=== PATIENT | female | born 1980 | race Caucasian/White ===

== ENCOUNTER 2016-10-14 09:23 | Emergency (ER) | payer BC ==
[2016-10-14 09:55] VITALS: PULSE 107
--- NOTE | 2016-10-14 10:42 | PD ---
HPI Chief Complaint contractions? Date Seen: Oct 14, 2016 Time Seen: 10:20 Travel History International Travel<30 Days: No Contact w/Intl Traveler<30Days: No Known Affected Area: No History of Present Illness HPI Pt is a 36 y/o G1 with IUP at 40.2 wks who presents for labor check. Pt states she thinks she may be feeling contractions. Unable to assess pattern. denies vag bleeding, lof. decreased FM today, but has felt movement since arrival. Para: 0 : 1 History Past Medical History Narrative Medical Rh neg, anemia, GERD Past Surgical History Narrative Surgical tonsillectomy Family History Family History: Negative Social History Alcohol Use: No Tobacco Use: No Substance Abuse: No Allergies-Medications (Allergen,Severity, Reaction): Coded Allergies: Doxycycline (Verified Allergy, Unknown, 10/14/16) Narrative Medication zantac, PNV Review of Systems General / Constitutional: Weight Gain Eyes: No: Diploplia, Blurred Vision, Visual changes, Pain, Photophobia, Other HENT: No: Headaches, Vertigo, Dental Difficulties, Lightheadedness, Other Cardiovascular: Tachycardia Respiratory: Short of Breath Gastrointestinal: Abdominal Pain Genitourinary: No: Urgency, Frequency, Dysuria, Nocturia, Hematuria, Decreased Urinary Output, Oliguria, Hesitancy, Dribbling, Incontinence, Pelvic Pain, Dyspareunia, Discharge, Menorrhagia, Vaginal Bleeding, Other Musculoskeletal: Pain Skin: No Rash, No Itching, No Dryness, No Lumps, No Change in Pigmentation, No Change in Nails, No Alopecia, No Lesions, No Breast Lumps, No Breast Tenderness , No Breast Swelling, No Other Neurologic: No: Weakness, Dizziness, Syncope, Focal Abnormalities, Coordination Problem, Headache, Slurred Speech, Seizures, Other Psychiatric: No: Anxiety, Depression, Suicidal Ideations, Disorder of Thought, Mood Disorder, Substance Abuse, Homicidal Ideation, Other Endocrine: No: Heat Intolerance, Cold Intolerance, Polydipsia, Polyuria, Other Hematologic/Lymphatic: No Easy Bruising, No Lymph Node Enlargement, No Other Physical Exam 113/71, 107, 20, 98.8 Narrative GENERAL: Well-nourished, well-developed patient. SKIN: Warm and dry. HEAD: Normocephalic and atraumatic. EYES: No scleral icterus. No injection or drainage. ENT: No nasal drainage noted. Mucous membranes pink. Airway patent. NECK: Supple, trachea midline. No JVD. CARDIOVASCULAR: Regular rate and rhythm without murmurs, gallops, or rubs. RESPIRATORY: Breath sounds equal bilaterally. No accessory muscle use. ABDOMEN/GI: Abdomen soft, non-tender, bowel sounds present, no rebound, no guarding Gravid GENITOURINARY: External Genitalia: intact and normal in appearance BUS glands: wnl Cervix: mid-position, soft Dilatation: 2 Effacement: 90 Station: -2 Presentation: ceph Membranes: intact Uterine Contractions: irritability FHT's: Category: 1 Baseline: 130s Reactive: yes Variability: mod Decels: none EXTREMITIES: No cyanosis. trace pedal edema BACK: Nontender without obvious deformity. No CVA tenderness. NEUROLOGICAL: Awake and alert. Motor and sensory grossly within normal limits. Five out of 5 muscle strength in all muscle groups. Normal speech. Data Data Vital Signs Reviewed: Yes MDM Medical Record Reviewed: Yes ( records reviewed: Rh neg) Narrative Course / MDM 36 y/o G1 with IUP at 40.2 with false labor (versus early latent labor) pt desires natural delivery and desires to go home if not in active labor s/sx of active labor reviewed. [facility] Diagnosis Diagnosis: Primary Impression: 40 weeks gestation of Additional Impression: False labor after 37 completed weeks of gestation Disposition: 01 DISCHARGE HOME Condition: Stable Patient Instructions: General Instructions, Early Labor Signs (ED), Nausea and Vomiting in (ED), Having Your Baby: The Labor Process (GEN), Movement (ED) Departure Forms: Tests/Procedures Chester Gates MD Oct 14, 2016 10:42
== END 2016-10-14 12:44 | disposition home or self-care (01) ==
LOC: HOBED 09:23
DX: O47.1 False labor at or after 37 completed weeks of gestation (principal); Z3A.40 40 weeks gestation of pregnancy
CPT/HCPCS: 59025

== ENCOUNTER 2016-10-15 00:31 | Inpatient (IN) | payer BC ==
[2016-10-15] VITALS (72 sets, daily range): BP systolic 97–173; BP diastolic 62–92; PULSE 59–113; RESP 18–20; TEMP 97.8–98.1
[~2016-10-15] VITALS: Ht 162.6 cm; Wt 98.0 kg
[2016-10-15] MEDS ORDERED: LACTATED RINGER'S 1000 ML INJ 1,000 ML IV PRN (01:31)
[2016-10-15] MEDS ORDERED: SODIUM CHLORID 0.9% 500 ML INJ 500 ML IV PRN (01:45)
[2016-10-15] MEDS ORDERED: CITRIC ACID-SODIUM CITRATE LIQ 30 ML UDC PO SCH (01:45)
[2016-10-15] MEDS ORDERED: OXYTOCIN 30 UNITS-500ML PREMIX 500 ML IV ONE (01:45)
[2016-10-15] MEDS ORDERED: MINERAL OIL 10 ML VIAL TOPICAL PRN (01:45)
[2016-10-15] MEDS ORDERED: LIDOCAINE HCL 1% 50 ML VIAL I-DERMAL PRN (01:45)
[2016-10-15] MEDS ORDERED: ONDANSETRON HCL 4 MG/2 ML VIAL IV PRN (01:45)
[2016-10-15] MEDS ORDERED: LIDOCAINE HCL 1% 50 ML VIAL INFIL PRN (01:45)
[2016-10-15] MEDS ORDERED: SODIUM CHLOR 0.9% 1000 ML INJ 1,000 ML IV PRN (01:51)
[2016-10-15] MEDS: LACTATED RINGER'S 1000 ML INJ 1,000 ML IV SCH ×2 (02:03→03:11)
--- NOTE | 2016-10-15 02:04 | PD ---
HPI Chief Complaint contractions Date Seen: Oct 15, 2016 Time Seen: 01:30 Travel History International Travel<30 Days: No Contact w/Intl Traveler<30Days: No Known Affected Area: No History of Present Illness HPI 36 y/o G1 with IUP at 40.3 wks presents for labor check. pt reports + contractions every 5 minutes, + pelvic pressure, + bloody show. +FM Para: 0 : 1 History Past Medical History Narrative Medical Rh neg, GERd, anemia Past Surgical History Narrative Surgical tonsillectomy Family History Family History: Negative Social History Alcohol Use: No Tobacco Use: No Substance Abuse: No Allergies-Medications (Allergen,Severity, Reaction): Coded Allergies: Doxycycline (Verified Allergy, Unknown, 10/14/16) Narrative Medication PNV Review of Systems General / Constitutional: Weight Gain Eyes: No: Diploplia, Blurred Vision, Visual changes, Pain, Photophobia, Other HENT: No: Headaches, Vertigo, Dental Difficulties, Lightheadedness, Other Cardiovascular: No: Irregular Rhythm, Chest Pain or Discomfort, Palpitations, Tachycardia, Syncope, Varicosities, Edema, Cyanosis, Other Respiratory: No: Cough, Short of Breath, Wheezing, Other Gastrointestinal: Abdominal Pain Genitourinary: Pelvic Pain, Vaginal Bleeding Musculoskeletal: No: Limited ROM, Weakness, Cramping, Edema, Pain, Other Skin: No Rash, No Itching, No Dryness, No Lumps, No Change in Pigmentation, No Change in Nails, No Alopecia, No Lesions, No Breast Lumps, No Breast Tenderness , No Breast Swelling, No Other Neurologic: No: Weakness, Dizziness, Syncope, Focal Abnormalities, Coordination Problem, Headache, Slurred Speech, Seizures, Other Psychiatric: No: Anxiety, Depression, Suicidal Ideations, Disorder of Thought, Mood Disorder, Substance Abuse, Homicidal Ideation, Other Endocrine: No: Heat Intolerance, Cold Intolerance, Polydipsia, Polyuria, Other Hematologic/Lymphatic: No Easy Bruising, No Lymph Node Enlargement, No Other Physical Exam 135/84, 76, 18, 98.2 Narrative GENERAL: Well-nourished, well-developed patient. SKIN: Warm and dry. HEAD: Normocephalic and atraumatic. EYES: No scleral icterus. No injection or drainage. ENT: No nasal drainage noted. Mucous membranes pink. Airway patent. NECK: Supple, trachea midline. No JVD. CARDIOVASCULAR: Regular rate and rhythm without murmurs, gallops, or rubs. RESPIRATORY: Breath sounds equal bilaterally. No accessory muscle use. ABDOMEN/GI: Abdomen soft, non-tender, bowel sounds present, no rebound, no guarding Gravid GENITOURINARY: External Genitalia: intact and normal in appearance BUS glands: [wnl] Cervix: anterior, soft Dilatation: 5-6 Effacement: 90 Station: -1 Presentation: ceph Membranes: bulging bag palpated Uterine Contractions: not tracing well with patient on side, pt reports q 5 min FHT's: Category: 1 Baseline: 130s Reactive: yes Variability: mod Decels: no EXTREMITIES: No cyanosis or edema. BACK: Nontender without obvious deformity. No CVA tenderness. NEUROLOGICAL: Awake and alert. Motor and sensory grossly within normal limits. Five out of 5 muscle strength in all muscle groups. Normal speech. Data Data Vital Signs Reviewed: Yes Orders Admit To Inpatient (10/15/16 ) Code Status (10/15/16 01:31) Vital Signs (Adult) .Per protocol (10/15/16 01:31) Heart (10/15/16 01:31) Amnioinfusion (10/15/16 01:31) Urinary Catheter Management .ONCE (10/15/16 01:31) Lactated Ringer's 1000 Ml Inj (Lr 1000 M (10/15/16 01:31) Lactated Ringer's 1000 Ml Inj (Lr 1000 M (10/15/16 01:31) Sodium Chlorid 0.9% 500 Ml Inj (Ns 500 M (10/15/16 01:45) Sodium Chlor 0.9% 1000 Ml Inj (Ns 1000 M (10/15/16 01:51) Lidocaine 1% Inj (50 Ml) (Xylocaine 1% I (10/15/16 01:45) Citric Acid-Sodium Citrate Liq (Bicitra (10/15/16 01:45) Ondansetron Inj (Zofran Inj) (10/15/16 01:45) Fentanyl Inj (Fentanyl Inj) (10/15/16 01:45) Fentanyl Inj (Fentanyl Inj) (10/15/16 01:45) Complete Blood Count With Diff (10/15/16 01:31) Hold Clot (10/15/16 01:31) Abo/Rh Blood Type (10/15/16 01:31) Resp Oxygen Non Rebreathe Mask (10/15/16 ) ^ Epidural / Intrathecal Infus (10/15/16 01:31) Oxytocin 30 Units-500ml Premix (Pitocin (10/15/16 01:45) Lidocaine 1% Inj (50 Ml) (Xylocaine 1% I (10/15/16 01:45) Light Mineral Oil (Muri-Lube Oil) (10/15/16 01:45) Inpatient Certification (10/15/16 ) Ob (2e) Additional Admit Info (10/15/16 01:41) MDM Medical Record Reviewed: Yes (Rh neg, GBS neg) Narrative Course / MDM 36 y/o G1 with IUP at 40.3 wks, active labor admit for delivery GBS neg Dr. Sawyer notified of pt admission/status. Chester Gates MD Oct 15, 2016 02:04
[2016-10-15] MEDS ORDERED: ePHEDrine/NS 25 MG/5 ML SYR ONE (02:19)
[2016-10-15] MEDS ORDERED: fentaNYL 2MCG-BUPIV 0.125% INJ 100 ML ONE (02:19)
[2016-10-15 02:40] LABS: BASOPHIL # 0.1 TH/MM3 (0-0.2); BASOPHIL % 0.4 % (0.0-2.0); EOSINOPHIL % 0.1 % (0.0-4.0); HEMATOCRIT 38.6 % (35.0-46.0); HEMO FLAGS DIFF FINAL; LYMPH % 6.2 % (9.0-44.0); LYMPHOCYTE # 1.1 TH/MM3 (1.0-4.8); MEAN CELL VOLUME 92.6 FL (80.0-100.0); MEAN CORPUSCULAR HEMOGLOBIN 31.9 PG (27.0-34.0); MEAN CORPUSCULAR HGB CONC 34.5 % (32.0-36.0); NEUT % 87.3 % (16.0-70.0); PLATELET COUNT 138 TH/MM3 (150-450); RED BLOOD COUNT 4.17 MIL/MM3 (4.00-5.30); RED CELL DISTRIBUTION WIDTH 12.9 % (11.6-17.2); WHITE BLOOD COUNT 17.2 TH/MM3 (4.0-11.0)
[2016-10-15] MEDS ORDERED: NO SYSTEM NARCOTICS PRN (03:45)
[2016-10-15] MEDS ORDERED: ePHEDrine/NS 25 MG/5 ML SYR IV PRN (03:45)
[2016-10-15] MEDS ORDERED: DO NOT ADMINISTER ANTICOAGULANTS PRN (03:45)
[2016-10-15] MEDS ORDERED: fentaNYL 2MCG-BUPIV 0.125% 100 ML EPIDURAL SCH (03:45)
[2016-10-15] MEDS ORDERED: LIDOCAINE HCL 1.5% PF SOLN 20 ML AMP ONE (05:55)
[2016-10-15] MEDS ORDERED: BUPIVACAINE HCL PF 0.25% 10 ML VIAL ONE (05:56)
[2016-10-15] MEDS ORDERED: LIDOCAINE HCL 1% PF 30 ML VIAL ONE ×2 (06:41→07:13)
--- NOTE | 2016-10-15 07:42 | PD.OB.DELI ---
Anesthesia: Epidural Episiotomy: Midline Vaginal Delivery: Normal Presentation: Occiput anterior Nuchal Cord: None Delayed cord clamping (45 sec): Yes Infant: Male One Minute : 10 Weight: 8 Placenta: Spontaneous delivery Laceration: 2 deg Repair: Chromic interrupted (meconium not below cords) Dana Sawyer MD Oct 15, 2016 07:42
[2016-10-15] MEDS ORDERED: BENZOCAINE 20% TOPICAL SPRAY 60 ML CAN TOPICAL PRN (07:45)
[2016-10-15] MEDS ORDERED: WITCH HAZEL 50%/GLYCERIN 12.5% 40 PAD JAR TOPICAL PRN (07:45)
[2016-10-15] MEDS ORDERED: ALUMINUM/MAGNESIUM/SIMETH 30 ML CUP PO PRN (07:45)
[2016-10-15] MEDS ORDERED: ZOLPIDEM TARTRATE 5 MG TAB PO PRN (07:45)
[2016-10-15] MEDS ORDERED: SODIUM CHLORIDE 0.9% FLUSH 10 ML FLUSH IV FLUSH PRN (07:45)
[2016-10-15] MEDS ORDERED: ONDANSETRON ODT 4 MG TAB PO PRN (07:45)
[2016-10-15] MEDS ORDERED: SODIUM CHLORIDE 0.9% FLUSH 10 ML FLUSH IV FLUSH SCH (09:00)
[2016-10-15] MEDS: DOCUSATE SODIUM 50 MG/SENNA 8.6 MG TAB PO PRN (11:16)
[2016-10-15] MEDS: IBUPROFEN 600 MG TAB PO PRN ×2 (15:14→22:11)
[2016-10-15] MEDS: ACETAMINOPHEN 325 MG TAB PO PRN ×2 (15:14→22:11)
[2016-10-15] MEDS ORDERED: DIPHTH/TETANUS/ACEL PERTUSSIS (BOOSTER) 0.5 ML VIAL/PFS IM ONE (16:00)
[2016-10-15] MEDS ORDERED: MEASLES, MUMPS, RUBELLA VACCINE 0.5 ML VIAL SQ ONE (16:00)
--- NOTE | 2016-10-16 02:26 | HHI.DCPOC ---
Discharge Care Plan Diagnosis: (1) (spontaneous vaginal delivery) Your Health Problems Are: Vaginal delivery Report Symptoms to Your Doctor -Temperature above 100.5 degrees -Redness, of incision or excessive or foul smelling drainage -Unusual pain or calf pain -Increased vaginal bleeding -Painful or difficulty urinating -Feelings of extreme sadness or anxiety after 2 weeks Goals to Promote Your Health * To prevent worsening of your condition and complications * To maintain your health at the optimal level Directions to Meet Your Goals Take your medications as prescribed Follow your dietary instruction Follow activity as directed Ensure plenty of rest for recovery Drink fluids for hydration Keep your appointments as scheduled Take your immunizations and boosters as scheduled If your symptoms worsen call your PCP, if no PCP go to Urgent Care Center or Emergency Room Smoking is Dangerous to Your Health. Avoid second hand smoke Call the 24-hour crisis hotline for domestic abuse at Lali Hargrove MD Oct 16, 2016 02:26
--- NOTE | 2016-10-16 02:28 | HHI.OB ---
Subjective Post Day: 1 Remarks doing well except for a cough that has been going on for over a week, feels getting worse and has sinus pressure Objective Vitals/I&O Vital Signs Date Time Temp Pulse Resp B/P Pulse Ox O2 Delivery O2 Flow Rate FiO2 10/15/16 20:00 97.8 89 20 98/64 10/15/16 09:30 98.0 10/15/16 09:30 70 18 103/62 10/15/16 07:31 81 137/81 10/15/16 06:45 89 10/15/16 06:40 86 10/15/16 06:35 93 10/15/16 06:30 104 10/15/16 06:25 100 10/15/16 06:20 86 10/15/16 06:15 101 10/15/16 06:10 107 10/15/16 06:05 82 10/15/16 06:00 102 10/15/16 06:00 101 130/73 10/15/16 05:55 85 10/15/16 05:50 91 10/15/16 05:45 95 10/15/16 05:40 113 10/15/16 05:35 99 10/15/16 05:30 83 10/15/16 05:30 95 125/80 10/15/16 05:25 109 10/15/16 05:23 98.1 18 10/15/16 05:20 93 10/15/16 05:15 87 10/15/16 05:10 85 10/15/16 05:05 95 10/15/16 05:01 119/67 10/15/16 05:01 90 10/15/16 05:00 90 10/15/16 04:55 84 10/15/16 04:50 83 10/15/16 04:45 84 10/15/16 04:40 94 10/15/16 04:35 101 10/15/16 04:30 95 126/92 10/15/16 04:25 81 10/15/16 04:20 89 10/15/16 04:15 100 10/15/16 04:10 88 10/15/16 04:05 84 10/15/16 04:00 18 10/15/16 04:00 90 119/73 10/15/16 04:00 91 10/15/16 03:55 89 111/80 7/21/17 03:55 108 10/15/16 03:51 98 131/81 10/15/16 03:50 93 10/15/16 03:45 71 10/15/16 03:40 66 10/15/16 03:35 105 10/15/16 03:30 95 10/15/16 03:30 86 125/76 10/15/16 03:25 97 10/15/16 03:25 101 97/76 10/15/16 03:20 79 10/15/16 03:20 77 120/69 10/15/16 03:15 84 115/79 10/15/16 03:15 87 10/15/16 03:11 70 134/67 10/15/16 03:10 76 10/15/16 03:09 89 173/68 10/15/16 03:05 67 10/15/16 03:00 69 10/15/16 02:55 73 10/15/16 02:50 69 10/15/16 02:45 83 10/15/16 02:35 101 10/15/16 02:30 76 Objective Remarks GENERAL: Well-nourished, well-developed patient. CARDIOVASCULAR: Regular rate and rhythm without murmurs, gallops, or rubs. RESPIRATORY: Breath sounds equal bilaterally. No accessory muscle use. lugs ctab ABDOMEN/GI: Abdomen soft, non-tender. Fundus: Firm, non-tender at umbilicus. GENITOURINARY: Light to moderate bleeding. EXTREMITIES: No cyanosis or edema, non-tender, without signs of DVT. Medications and IVs Current Medications Medications (Trade) Dose Ordered Sig/Mich Route Start Time Stop Time Status Last Admin Lactated Ringer's 1,000 ml @ 125 mls/hr Q8H IV 10/15/16 01:31 10/15/16 03:11 Lactated Ringer's 1,000 ml @ 3,000 mls/hr Q20M PRN IV 10/15/16 01:31 Sodium Chloride 500 ml @ 1,000 mls/hr ONCE PRN IV 10/15/16 01:45 (NS 1000 ml Inj) 1,000 ml @ 100 mls/hr Q10H PRN IV 10/15/16 01:51 (Zofran Inj) 4 mg Q6H PRN IV 10/15/16 01:45 10/15/16 02:34 (fentaNYL INJ) 50 mcg Q1H PRN IV PUSH 10/15/16 01:45 (fentaNYL INJ) 100 mcg Q1H PRN IV PUSH 10/15/16 01:45 (Muri-Lube Oil) 10 ml UNSCH PRN TOPICAL 10/15/16 01:45 Miscellaneous Information No systemic narcotics to be given except... UNSCH PRN .XX 10/15/16 03:45 10/16/16 03:44 Miscellaneous Information DO NOT ADMINISTER ANY ANTICOAGUL... UNSCH PRN .XX 10/15/16 03:45 10/16/16 03:44 (fentaNYL 2MCG-BUPIV 0.125% INJ) 100 ml @ 0 mls/hr TITRATE EPIDURAL 10/15/16 03:45 10/15/16 04:22 (ePHEDrine/NS 25 MG/5 ML SYR) 10 mg UNSCH PRN IV 10/15/16 03:45 10/16/16 03:44 (NS Flush) 2 ml BID IV FLUSH 10/15/16 09:00 (NS Flush) 2 ml UNSCH PRN IV FLUSH 10/15/16 07:45 (Tylenol) 650 mg Q4H PRN PO 10/15/16 07:45 10/15/16 22:11 (Motrin) 600 mg Q6H PRN PO 10/15/16 07:45 10/15/16 22:11 (Americaine 20% Top Spr) 1 spray Q4H PRN TOPICAL 10/15/16 07:45 10/15/16 11:27 (Tucks Pads) 1 applic QID PRN TOPICAL 10/15/16 07:45 10/15/16 11:27 (Shirley-Colace) 2 tab Q12H PRN PO 10/15/16 07:45 10/15/16 11:16 (Ambien) 5 mg HS PRN PO 10/15/16 07:45 (Mag-Al Plus Susp Liq) 15 ml Q8H PRN PO 10/15/16 07:45 (Zofran Odt) 4 mg Q6H PRN PO 10/15/16 07:45 Assessment/Plan Problem List: (1) (spontaneous vaginal delivery) Assessment and Plan PPD 1 cont routine care d/c today if baby ready Lali Hargrove MD Oct 16, 2016 02:28
[2016-10-16] MEDS ORDERED: IBUP-232 PO (02:34)
[2016-10-16] MEDS: IBUPROFEN 600 MG TAB PO PRN ×3 (05:18→11:40)
[2016-10-16] MEDS: ACETAMINOPHEN 325 MG TAB PO PRN ×2 (05:19→11:39)
[2016-10-16] MEDS: DOCUSATE SODIUM 50 MG/SENNA 8.6 MG TAB PO PRN (05:19)
[2016-10-16 08:00] VITALS: BP 104/70; PULSE 76; RESP 18; TEMP 98.4
[2016-10-16] MEDS ORDERED: AZIT250T3 PO (12:02)
== END 2016-10-16 19:22 | disposition home or self-care (01) | DRG 775 ==
LOC: HOBED 00:31 → H2EB 01:42 → H1EA 08:53
PROVIDERS: ADMIT Obstetrics & Gynecology; ATTEND Obstetrics & Gynecology
PROC: 10E0XZZ Delivery of Products of Conception, External Approach (ICD-10-PCS; principal; 2016-10-15)
PROC: 0W8NXZZ Division of Female Perineum, External Approach (ICD-10-PCS; 2016-10-15)
PROC: 3E0S3CZ (ICD-10-PCS; 2016-10-15)
PROC: 00HU33Z Insertion of Infusion Device into Spinal Canal, Percutaneous Approach (ICD-10-PCS; 2016-10-15)
DX: O99.89 Other specified diseases and conditions complicating pregnancy, childbirth and the puerperium (principal); R05 Cough; Z3A.40 40 weeks gestation of pregnancy; Z37.0 Single live birth
CPT/HCPCS: 59025; 84112; 85025; 85461; 86077; 86850; 86870; 86900; 86901; 90384; J2405; J2790; J7120